=== PATIENT | female | born 1955 | race Caucasian/White ===

== ENCOUNTER 2017-10-03 08:39 | Inpatient (IN) | payer BC, OTHER ==
[2017-09-14 08:11] VITALS: BMI 24.0
--- NOTE | 2017-09-14 08:43 | PAT Medication Instructions ---
Service Date Sep 14, 2017. Current Home Medication List Hydroxyzine HCl (Hydroxyzine HCl), 0.5 TAB PO QAM PRN for Anxiety/Agitation Loratadine (Claritin), 10 MG PO QAM PRN for seasonal allergies Multivitamin (Multivitamin), 1 TAB PO QAM Trazodone Hcl (Trazodone), 50 MG PO HS Venlafaxine Hcl (Venlafaxine Hcl Er), 1 TAB PO QAM Medication Instructions For Your Scheduled Surgery - Hold the following medications the morning of surgery: Loratadine (Claritin), 10 MG PO QAM PRN for seasonal allergies Multivitamin (Multivitamin), 1 TAB PO QAM - Take the following medications the morning of surgery with a sip of water: Hydroxyzine HCl (Hydroxyzine HCl), 0.5 TAB PO QAM PRN for Anxiety/Agitation (if needed) Venlafaxine Hcl (Venlafaxine Hcl Er), 1 TAB PO QAM - Take the following medications as scheduled the night before surgery: Hydroxyzine HCl (Hydroxyzine HCl), 0.5 TAB PO QAM PRN for Anxiety/Agitation (if needed) Loratadine (Claritin), 10 MG PO QAM PRN for seasonal allergies (if needed) Trazodone Hcl (Trazodone), 50 MG PO HS If you have any questions please call us at [phone] or [phone] or [phone]
--- NOTE | 2017-09-14 09:23 | DIAGNOSTIC IMAGING REPORT ---
CHEST 2 VIEWS ROUTINE CLINICAL HISTORY: Preoperative chest COMPARISON STUDY: May 2009 FINDINGS: The cardiac and mediastinal contours are normal. There is no evidence of focal pulmonary consolidation. There is no evidence of failure. No pleural effusions are visualized.[ The patient appears mildly hyperinflated IMPRESSION: No active disease in the chest. Electronically signed by: Aftab Rodriguez M.D. 09/14/2017 9:22 AM Dictated Date/Time: 09/14/2017 9:21 AM
[2017-09-14 11:11] LABS: BASO % 0.2 %; BASO ABS # 0.02 K/uL (0-0.2); EOS % 10.4 %; HEMATOCRIT 46.5 % (37-47); IG# 0.01 K/uL (0.00-0.02); LYMPH % 25.7 %; LYMPH ABS # 2.22 K/uL (1.2-3.4); MEAN CELL VOLUME 91.7 fL (80-100); MEAN CORPUSCULAR HEMOGLOBIN 31.6 pg (25-34); MEAN CORPUSCULAR HGB CONC 34.4 g/dl (32-36); MEAN PLATELET VOLUME 10.5 fL (7.4-10.4); MONO % 6.6 %; MONO ABS # 0.57 K/uL (0.11-0.59); NEUT ABS # 4.93 K/uL (1.4-6.5); PLATELET COUNT 292 K/uL (130-400); RED CELL DISTRIBUTION WIDTH CV 12.8 % (11.5-14.5); RED CELL DISTRIBUTION WIDTH SD 42.8 fL (36.4-46.3); WHITE BLOOD COUNT 8.65 K/uL (4.8-10.8)
[2017-09-14 11:15] LABS: INR 1.1 (0.9-1.1); PTT PATIENT 25.7 SECONDS (21.0-31.0)
[2017-09-14 11:22] LABS: CALCIUM 8.8 mg/dl (8.5-10.1); CREATININE 0.58 mg/dl (0.60-1.20); POTASSIUM 3.7 mmol/L (3.5-5.1)
--- NOTE | 2017-09-29 19:30 | HISTORY & PHYSICAL EXAMINATION ---
DATE OF ADMISSION: 10/03/2017 CHIEF COMPLAINT: Bilateral knee pain and discomfort, left side greater than right. 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 She has got a long history of bilateral knee pain and discomfort that has gradually gotten worse over the past 15 years. 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 She continues to exercise regularly but becoming more limited by her knee pain. She has been through extensive conservative treatment by my partner Dr. Chong including various injections which have become less successful over time. Pain is mostly in the medial side of the knee. The left side a bit worse than the right. She has a limited walking tolerance. She would like to have her knees fixed. PAST MEDICAL HISTORY: Arthritis. PAST SURGICAL HISTORY: 1. Eye surgery. 2. Hysterectomy. ALLERGIES: Seasonal. CURRENT MEDICINES: Include: 1. Hydroxyzine. 2. Effexor. 3. Trazodone. 4. Vitamins. SOCIAL HISTORY: A 62-year-old female. She is . She smoked intermittently in the 90s, but no longer. She does have a significant alcohol intake 20 years ago. REVIEW OF SYSTEMS: Negative for diabetes, neurologic problem, vascular problem and bleeding disorders. Denies any chest pain or shortness of breath. No history of DVT or PE. PHYSICAL EXAMINATION: GENERAL: Reveals a healthy, pleasant middle-aged female. Looks to be in good health. HEENT: Benign. NECK: Supple. No lymphadenopathy. LUNGS: Clear to auscultation. HEART: Has a regular rate and rhythm. ABDOMEN: Soft, nontender, nondistended. EXTREMITIES: Grossly neurovascularly intact except as follows. Examination of left knee reveals patient walks with a varus alignment to her knee. She has got bony hypertrophy medially. Tender over the medial joint line. Small knee effusion. Range of motion is 0-125. No instability. No pain with hip motion. X-RAYS: X-rays of the left knee reviewed. Shows advanced left knee DJD. She has complete loss of medial joint space. She has osteophytes of the medial femoral condyle and medial tibial plateau. ASSESSMENT: [id number] very active female with advanced bilateral knee degenerative joint disease. This has gotten progressively worse over the past 15 years and unresponsive to conservative treatment. She elected to proceed with knee replacement; however, left one done first and the right one maybe 3-4 months later. PLAN: We will take her to the operating room and do a left total knee replacement. The risks and benefits of this procedure were explained to the patient include but not limited to DVT, PE, , infection, neurological injury, vascular injury, bleeding problem, pain, limited range of motion, stiffness, failure to relieve symptoms, incomplete relief of symptoms, need for further surgery in the future, fracture, leg length inequality, nerve palsy etc. The patient understands and desires to proceed. Informed consent was obtained. Patient does not want to stay in the hospital long. She may be able to be discharged postop day #1 if she is doing okay. She wants to limit narcotic intake and would use Tylenol, Toradol and tramadol. She is planning to be discharged to home and do outpatient therapy at [facility]. FRANCIS
[2017-10-03] VITALS (12 sets, daily range): BP systolic 125–184; BP diastolic 73–95; PULSE 55–91; TEMP 36.4–36.8; O2SAT 97–100; Ht 157.5 cm; Wt 60.6 kg
[~2017-10-03] VITALS: Ht 157.5 cm; Wt 60.6 kg
[~2017-10-03 08:39] MED LIST: ACETAMINOPHEN 500 MG TAB PO SCH; ATR10 PO; BUPIVACAINE 0.25% 30 ML VIAL ONE; BUPIVACAINE 0.5 % 5 MG/1 ML PF 10ML VIAL ONE; BUPIVACAINE LIPOSOME 266 MG, BUPIVACAINE/EPINEPHRINE INJ 50 ML, SODIUM CHLORIDE 0.9% PF... INFIL SCH; CEFAZOLIN 2000MG IV PUSH 15 ML IV SCH; CLR10 PO; FAMOTIDINE 20 MG TAB PO SCH; FENTANYL CITRATE INJ 50 MCG/1 ML 2 ML VIAL ONE; GABAPENTIN 600 MG PO SCH; LACTATED RINGER'S 1000ML 1,000 ML IV SCH; LACTATED RINGER'S 1000ML 500 ML IV SCH; LACTATED RINGER'S 1000ML IV SCH; LIDOCAINE HCL 2% 2 ML VIAL (20MG/ML) ONE; METOCLOPRAMIDE HCL 10 MG TAB PO SCH; MIDAZOLAM HCL 1 MG/ML 2ML VIAL ONE; MULT-506 PO; ONDANSETRON INJ 2 MG/ML 2 ML VIAL ONE; PROPOFOL IV EMULSION 10 MG/ML 20 ML VIAL IV ONE; SCOPOLAMINE 1.5 MG TDSY TD SCH; TRANEXAMIC ACID INJ 1,000 MG x 1 Bag Intra-Op IV SCH; TRAZ50TA35 PO; VENL150T33 PO
--- NOTE | 2017-10-03 08:55 | History & Physical Bridge Note ---
H&P Re-Evaluation Bridge Note: I have examined the patient, reviewed the History & Physical and in the interval since the performance of the History & Physical I have noted the following changes of clinical significance: No changes noted
[2017-10-03] MEDS ORDERED: BACITRACIN 50000 UNIT VIAL ONE (10:35)
[2017-10-03] MEDS ORDERED: SODIUM CHLORIDE 0.9% PF 50 ML VIAL ONE (10:35)
[2017-10-03] MEDS ORDERED: BUPIVACAINE LIPOSOME 1/3% 266 MG/20 ML VIAL INFIL ONE (10:35)
[2017-10-03] MEDS ORDERED: BUPIVACAINE 0.25% 30 ML VIAL ONE ×2 (10:36→10:43)
[2017-10-03] MEDS ORDERED: EpINEphrine INJ 1MG/ML AMP 1 MG/ML AMP ONE (10:36)
[2017-10-03] MEDS ORDERED: MIDAZOLAM HCL 1 MG/ML 2ML VIAL ONE (10:55)
[2017-10-03] MEDS ORDERED: ONDANSETRON INJ 2 MG/ML 2 ML VIAL IV PRN ×2 (11:00→12:30)
[2017-10-03] MEDS ORDERED: KETOROLAC TROMETHAMINE 30 MG/ML VIAL IV. PRN (11:00)
[2017-10-03] MEDS ORDERED: PHENYLEPHRINE 100MCG/ML 5ML SYR IV PRN (11:00)
[2017-10-03] MEDS ORDERED: ATROPINE SULFATE 0.1 MG/ML 5ML SYR IV PRN (11:00)
[2017-10-03] MEDS ORDERED: HYDROmorphone INJ 2 MG/ML SYR/VIAL IV PRN (11:00)
[2017-10-03] MEDS ORDERED: EpHEDrine SULFATE INJ 50 MG/ML AMP IV PRN (11:00)
[2017-10-03] MEDS ORDERED: PHENYLEPHRINE HCL INJ 10 MG/ML VIAL ONE (12:03)
--- NOTE | 2017-10-03 12:26 | [facility] Post Operative Brief Note ---
Immediate Operative Summary Operative Date Oct 03, 2017. Pre-Operative Diagnosis Left Knee Advanced Degenerative Joint Disease Post-Operative Diagnosis Left Knee Advanced Degenerative Joint Disease Procedure(s) Performed Left Total Knee Arthroplasty Surgeon Dr. Oleary Cardroom Hand Surgeon(s) CHANG Cervantes Estimated Blood Loss 50 ml Findings Consistent with Post-Op Diagnosis Fluids (cc crystalloids) 1000 cc Specimens A. Left Knee Bone and Tissue Drains None Anesthesia Type MAC Spinal Regional Complication(s) none Disposition Accompanied Pt To Recover: no Disposition: Recovery Room / PACU
[2017-10-03] MEDS ORDERED: ALUMINUM/MAGNESIUM/SIMETH (MAALOX MAX) 30 ML UDC PO PRN (12:30)
[2017-10-03] MEDS ORDERED: METOCLOPRAMIDE HCL INJ 5 MG/ML 2 ML VIAL IV PRN (12:30)
[2017-10-03] MEDS ORDERED: DiphenhydrAMINE HCL 50 MG/ML VIAL IV PRN (12:30)
[2017-10-03] MEDS ORDERED: LORATADINE 10 MG TAB PO PRN (12:30)
[2017-10-03] MEDS ORDERED: MAGNESIUM HYDROXIDE SUSP 30 ML UDC PO PRN (12:30)
[2017-10-03] MEDS ORDERED: SILVER SULFADIAZINE 1% CR 50 GM JAR EXT PRN (12:30)
[2017-10-03] MEDS ORDERED: hydrOXYzine HCL 10 MG TAB PO PRN (12:30)
[2017-10-03] MEDS ORDERED: ZOLPIDEM TARTRATE 5 MG TAB PO PRN (12:30)
[2017-10-03] MEDS ORDERED: BISACODYL 10 MG SUPP PR PRN (12:30)
[2017-10-03] MEDS ORDERED: CEFAZOLIN IV 1,000 MG in DEXTROSE 5% 50ML 50 ML IV SCH (12:30)
[2017-10-03] MEDS ORDERED: OXYCODONE HCL IR 5 MG TAB (IMMEDIATE RELEASE) PO PRN (12:30)
[2017-10-03] MEDS ORDERED: MoRPHine SULFATE 2 MG/ML CARP IV PRN (12:30)
--- NOTE | 2017-10-03 12:53 | DIAGNOSTIC IMAGING REPORT ---
LEFT KNEE 2 VIEWS History: Left total knee arthroplasty. Degenerative arthritis. Postop. FINDINGS: The patient is status post a left total knee arthroplasty. The hardware is intact. No fracture or dislocation. Skin jose alberto are in place. IMPRESSION: Left total knee arthroplasty. No evidence for hardware complication. Electronically signed by: Silvestre Aguayo M.D. 10/03/2017 12:52 PM Dictated Date/Time: 10/03/2017 12:51 PM
--- NOTE | 2017-10-03 13:02 | Anesthesiology Progress Note ---
Anesthesia Post Op Note Date & Time Oct 03, 2017 at 13:02 Vital Signs Pain Intensity: 0 Vital Signs Past 12 Hours Date Time Temp Pulse Resp B/P (MAP) Pulse Ox O2 Delivery O2 Flow Rate FiO2 10/03/17 13:00 36.9 59 12 145/72 99 Nasal Cannula 2 10/03/17 12:50 61 13 140/77 100 Nasal Cannula 2 10/03/17 12:40 59 15 137/73 100 Oxymask 10 10/03/17 12:30 36.8 67 14 136/81 100 Oxymask 10 10/03/17 09:32 36.6 91 20 157/95 99 Room Air Notes Mental Status: alert / awake / arousable, participated in evaluation Pt Amnestic to Procedure: Yes Nausea / Vomiting: adequately controlled Pain: adequately controlled Airway Patency, RR, SpO2: stable & adequate BP & HR: stable & adequate Hydration State: stable & adequate Anesthetic Complications: no major complications apparent
--- NOTE | 2017-10-03 13:46 | OPERATIVE REPORT ---
DATE OF OPERATION: 10/03/2017 SURGEON: Srinivasan Oleary MD DIRECTOR OF CLAIMS: CHANG Shields PREOPERATIVE DIAGNOSIS: Left knee degenerative joint disease. POSTOPERATIVE DIAGNOSIS: Same. PROCEDURE PERFORMED: Left cemented posterior stabilized total knee arthroplasty. COMPLICATIONS: None. ESTIMATED BLOOD LOSS: 50 mL. FLUID REPLACEMENT: 1000 mL crystalloid fluid replacement. TOURNIQUET TIME: 55 minutes at 300 mmHg. ANESTHESIA: Spinal with adductor canal block. DRAINS: None. SPECIMENS: Left knee sent for pathology. OPERATIVE INDICATIONS: The patient is a 62-year-old very active female who has had about a 10-15 year history of bilateral increasing pain in her knees, so she was progressive knee arthritis. She has been through extensive conservative treatment over the years, but become less successful. She has become more debilitated by her disease and she elected to total knee arthroplasty. OPERATIVE FINDINGS: The operative findings were advanced left knee DJD. She had extensive grade 4 change of the medial femoral condyle and medial tibial plateau with eburnation. She had grade 3 and some spotty grade 4 changes of patellofemoral joint. The lateral compartment was pretty well preserved. She had a varus deformity to her knee. She had posterior osteophytes. OPERATIVE IMPLANTS: Operative implants consisted of: 1. Biomet Vanguard size 62.5 left posterior bifemoral component. 2. Biomet size 67 tibial tray. 3. 12 mm posterior stabilized polyethylene insert. 4. 28 x 8 all-poly patella. OPERATIVE PROCEDURE: The patient was taken to the operating room, identified and placed on the operating table in supine position. All contact areas were appropriately padded. IV antibiotics provided by anesthesia team. Spinal anesthetic and adductor canal block had been provided in the holding area. Webster catheter was placed in sterile fashion. Left thigh tourniquet was then placed and left lower extremity was then prepped and draped in usual sterile fashion. The left leg was elevated and exsanguinated with Esmarch and tourniquet was placed at 300 mmHg. An anterior approach of the left knee was then performed through a longitudinal incision centered over the patella. Sharp dissection was carried out through the subcutaneous tissue down to the level of the extensor mechanism. A medial parapatellar arthrotomy incision was made. Some subperiosteal dissection was carried out medially. The fat pad was resected from beneath the patellar tendon. Lateral patellofemoral ligament was released. Patella was everted and knee was flexed. The osteophytes were taken off the distal femur. The ACL and PCL were then released from the distal femur and the tibia subluxated anteriorly. The external tibial alignment jig was then placed in the anterior face of the tibia and adjusted 14 mm medially. Proximal tibial cut was made to remove about a millimeter of bone from the most deficient aspect of the medial tibial plateau. Some osteophytes were taken off medial and posteromedially. The tibia sized to a size 67. Attention was then drawn to the femur. The distal femur was entered with a sharp drill bit. Intramedullary canal was suctioned. A left 5 degree valgus cutting guide was placed. Distal femoral cutting block was pinned in place. Distal femoral cut was made to take an additional 3 mm of bone off the distal femur. The femur was then sized to a size 62.5. We downsized this slightly. The AP cutting block was pinned parallel to the epicondylar axis, which was 5 degrees of external rotation. The anterior cut, anterior chamfer, posterior cut, posterior chamfer cuts were made. Box cutting guide was placed and adjusted slightly lateral and the box cut was made. The knee was flexed. The remnants of the medial and lateral menisci were excised. The osteophytes were taken off the posterior aspect of the femur. Trial femoral component was placed. Tibial tray was pinned in maximum external rotation, and drill and stem punch were used to create defect in proximal tibia for the tibial tray. The knee was then trialed and the 12 mm insert fit most appropriately. Attention was then drawn to the patella. The patella was cleaned of all soft tissues. Patella thickness measured 21 mm in thickness cut down to 13. It was sized to a size 28 patella. Lug holes were drilled for the 28 patella. Lateral osteophyte was removed. Patella button was placed. Knee was taken through range of motion and patella tracked nicely with no thumbs test. Attention was then drawn toward placing the permanent components. All trial components were removed. A bone plug was placed in the distal femur to limit blood loss. A double batch of Palacos G cement was mixed. A left 62.5 posterior stabilized femoral component, size 67 tibial tray, a 12 mm posterior stabilized polyethylene insert, and a 28 x 8 all-poly patella then cemented in place. Knee was brought out into full extension until cement hardened. A final cement check was then performed. Pericapsular tissues were injected with a total of 100 mL of combination of 20 mL of Exparel, 30 mL of normal saline, 50 mL of 0.25% Marcaine with epinephrine. The patient did receive 1 gram of tranexamic acid. The tourniquet was then let down for final tourniquet time of 55 minutes. Hemostasis was assured using electrocautery. The extensor mechanism was then closed with a combination of #1 PDS suture and #1 Vicryl suture in [id number] fashion. Extensor mechanism was checked and found to be intact. The subcutaneous tissues were then closed with #2 Dexon suture in a buried interrupted fashion. Skin was closed with skin jose alberto. Leg was then cleaned, dried and a sterile dressing of Xeroform, 4 x 4, sterile cast padding and Nahum bandage were applied. The patient then transferred to the recovery room in stable condition. The patient tolerated the procedure well with no complication. All needle and sponge counts were correct at the end of the operation. I attest to the content of the Intraoperative Record and any orders documented therein. Any exception s are noted below.
[2017-10-03] MEDS: D5W AND 1/2NSS + 20MEQ KCL 1,000 ML IV SCH (14:29)
[2017-10-03] MEDS: ACETAMINOPHEN 500 MG TAB PO SCH ×2 (14:29→21:41)
--- NOTE | 2017-10-03 15:13 | PROGRESS NOTE ---
DATE: 10/03/2017 SUBJECTIVE: This is a 62-year-old female, postop from a left knee replacement. She is doing well. Not had any pain yet. No chest pain or shortness of breath. Not feeling dizzy or lightheaded. OBJECTIVE: VITAL SIGNS: Temperature 36.5. Vital signs stable. PHYSICAL EXAMINATION: GENERAL: Physical examination reveals a pleasant, middle-aged female. She is sitting on bed, looks quite comfortable. LUNGS: Clear to auscultation. HEART: Heart has a regular rate and rhythm. ABDOMEN: Soft, nontender, nondistended. EXTREMITY EXAMINATION: Grossly neurovascularly intact except as follows: Examination of the left lower extremity reveals the leg to be well-aligned. Dressing is clean, dry, and intact. She can dorsiflex and plantarflex her foot appropriately. She is neurologically intact. X-RAYS: X-rays of the left knee from recovery room reviewed. Shows a cemented posterior stabilized total knee arthroplasty. Components looked to be in good position. No signs of problems. ASSESSMENT: This is a 62-year-old female, postop from a left knee replacement, doing well. Pain is controlled. She is neurologically intact. PLAN: 1. DVT prophylaxis including thigh-high TEDs, SCDs, and aspirin twice a day. 2. PT/OT. Weightbear as tolerated. Left total knee protocol. 3. Pain control, doing pretty well with current pain regimen. 4. IV antibiotics x24 hours. 5. Disposition: Plan to discharge to home. She is going do outpatient therapy once adequately recovered.
[2017-10-03] MEDS: KETOROLAC TROMETHAMINE 30 MG/ML VIAL IV. SCH ×2 (15:58→21:41)
[2017-10-03] MEDS: CHECK SCOPOLAMINE PATCH PLACEMENT SCH (16:02)
[2017-10-03] MEDS: FERROUS GLUCONATE 324 MG TAB PO SCH (17:42)
[2017-10-03] MEDS: CEFAZOLIN IV 1,000 MG in SYRINGE 0 ML IV SCH (18:07)
[2017-10-03] MEDS ORDERED: TRANEXAMIC ACID INJ 1,000 MG in SODIUM CHLORIDE 0.9% 100ML 100 ML IV SCH (19:00)
[2017-10-03] MEDS: DOCUSATE SODIUM 100 MG CAP PO SCH (20:33)
[2017-10-03] MEDS: ASPIRIN 81 MG ECTAB PO SCH (20:33)
[2017-10-03] MEDS ORDERED: TAPENTADOL ER 50 MG TABCR PO SCH (21:00)
[2017-10-03] MEDS ORDERED: TRAZODONE HCL 50 MG TAB PO SCH (21:00)
[2017-10-03] MEDS ORDERED: SENNA 8.6 MG TAB PO SCH (21:00)
[2017-10-03] MEDS ORDERED: TRAMADOL HCL 50 MG TAB PO PRN (22:00)
[2017-10-04] MEDS: D5W AND 1/2NSS + 20MEQ KCL 1,000 ML IV SCH ×2 (00:26→10:15)
[2017-10-04] MEDS: CHECK SCOPOLAMINE PATCH PLACEMENT SCH ×2 (00:26→07:34)
[2017-10-04 00:30] VITALS: O2SAT 99
[2017-10-04] MEDS: CEFAZOLIN IV 1,000 MG in SYRINGE 0 ML IV SCH (02:14)
[2017-10-04] MEDS: KETOROLAC TROMETHAMINE 30 MG/ML VIAL IV. SCH ×2 (04:22→10:15)
[2017-10-04 04:30] VITALS: BP 135/80; PULSE 65; TEMP 36.5; O2SAT 98
[2017-10-04] MEDS: ACETAMINOPHEN 500 MG TAB PO SCH ×2 (06:06→13:35)
[2017-10-04 06:13] LABS: HEMATOCRIT 37.5 % (37-47); HEMOGLOBIN 12.8 g/dL (12.0-16.0); MEAN CELL VOLUME 93.8 fL (80-100); MEAN CORPUSCULAR HGB CONC 34.1 g/dl (32-36); MEAN PLATELET VOLUME 9.7 fL (7.4-10.4); PLATELET COUNT 231 K/uL (130-400); RED CELL DISTRIBUTION WIDTH CV 12.8 % (11.5-14.5); RED CELL DISTRIBUTION WIDTH SD 43.8 fL (36.4-46.3)
[2017-10-04 06:45] LABS: CALCIUM 7.9 mg/dl (8.5-10.1); CREATININE 0.65 mg/dl (0.60-1.20); POTASSIUM 4.3 mmol/L (3.5-5.1)
[2017-10-04 07:37] VITALS: BP 149/80; PULSE 63; TEMP 36.7; O2SAT 98
[2017-10-04] MEDS: FERROUS GLUCONATE 324 MG TAB PO SCH ×2 (08:30→11:22)
[2017-10-04] MEDS ORDERED: PANTOprazole SOD 40 MG TAB PO SCH (09:00)
[2017-10-04] MEDS ORDERED: MULTIVITAMIN TAB PO SCH ×2 (09:00)
[2017-10-04] MEDS ORDERED: VENLAFAXINE HCL XR 150 MG CAPXR PO SCH (09:00)
[2017-10-04] MEDS: ASPIRIN 81 MG ECTAB PO SCH (09:35)
[2017-10-04] MEDS: DOCUSATE SODIUM 100 MG CAP PO SCH (09:36)
[2017-10-04] MEDS ORDERED: ULT50X PO (10:36)
[2017-10-04] MEDS ORDERED: ACET-24 PO (10:36)
[2017-10-04] MEDS ORDERED: KETO10TA PO (10:36)
[2017-10-04] MEDS ORDERED: ASPI-320 PO (10:36)
--- NOTE | 2017-10-04 10:38 | Discharge Instructions ---
Discharge Instructions Date of Service Oct 04, 2017. Admission Reason for Admission: Left Knee Degenerative Joint Disease, Knee Pain Discharge Discharge Diagnosis / Problem: Left Knee REplacement Discharge Goals Goal(s): Decrease discomfort, Improve function, Increase independence, Improve disease control Activity Recommendations Activity Limitations: per Instructions/Follow-up section Weightbearing Status: Left weightbearing . Instructions / Follow-Up Instructions / Follow-Up ACTIVITY RECOMMENDATIONS: Physical Therapy: * You will go to physical therapy three times each week for four to six weeks after your surgery in order to regain your knee range of motion and to retrain your knee to work properly. * It is just as important to make sure you are getting your knee perfectly straight as it is to regain your knee bend. * Taking a pain pill an hour before therapy can help you have a more productive and comfortable therapy session. Home Exercise: * You were shown a series of exercises (heel props, heel slides, etc.) in the hospital. Do these exercises three to four times each day including the exercises you were shown in physical therapy. Walking: * Get up and walk several times each day. For the first four weeks, try not to stand or walk for more than one hour at a time. If you do stand or walk for more than one hour, you will not hurt anything, but your knee and leg will likely swell. * As you feel comfortable, you may change from the walker or crutches to a cane and then to independent walking. MEDICATIONS: New Medicine: * You will likely be taking one or more of these medications: 1. Tramadol - A quick and shorter-acting pain medication. Take one to two tablets every four to six hours to lessen your pain. 2. Aspirin - Thins your blood to lessen the chance of forming a blood clot. * The most common side effects of pain medicine and iron are nausea and constipation. If nausea or constipation is too much of a problem or if you have any questions about your new medicines or doses, call [facility] at [phone]. We will try to help you manage these issues. VERY IMPORTANT TO READ AND REVIEW" Pain: * The immediate post-operative period after knee replacement surgery is often quite painful. * You are given a prescription for pain medicine. You should take it, as directed, when you need it, especially before physical therapy and before going to bed. Pain that interferes with sleep is very common and can last several months. * You will likely need pain medicine for the first four to six weeks. It will not stop all of the pain. The pain will lessen and as you feel better, you may change to milder pain medicine such as Tylenol. * The most common side effects of pain medicine are nausea and constipation, so don't take more than you need. SPECIAL CARE INSTRUCTIONS: TEDs/Elastic Stockings: * The white elastic stockings help limit swelling and prevent blood clots from forming in your legs. The more you wear them, the more they work. * Wear them for six weeks after knee replacement surgery and four weeks after partial knee replacement. Prevention of Infection: * Take antibiotics one hour before any dental cleaning, dental work, urological procedure, gastrointestinal procedure or any invasive surgery in order to prevent your new joint from getting infected. * You may get the antibiotics from the doctor performing the procedure or you may call our office at before and we will call in a prescription to the pharmacy of your choice. Things to Watch For: * Drainage from the incision site that occurs more than one week after your surgery. * Severely increased knee/leg pain or swelling. * Increased redness at the incision site. * Fever above 102 degrees Fahrenheit. * Unusual chest pain or shortness of breath. * Unusual pain or burning with urination. Call [facility] at with any of the above problems or if you have any questions about your medicines or recovery. FOLLOW UP VISIT: Make an appointment to see your doctor for approximately two weeks after surgery for a progress check and staple removal by calling the office at . Current Hospital Diet Patient's current hospital diet: Regular Diet Discharge Diet Recommended Diet: Regular Diet Procedures Procedures Performed: Left Total Knee Arthroplasty Pending Studies Studies pending at discharge: no Medical Emergencies . Who to Call and When: Medical Emergencies: If at any time you feel your situation is an emergency, please call [phone] immediately. . Non-Emergent Contact Non-Emergency issues call your: Surgeon . "Provider Documentation" section prepared by Srinivasan Oleary. .
[2017-10-04 11:24] VITALS: BP 164/78; PULSE 67; TEMP 36.4; O2SAT 96
[2017-10-04 14:20] VITALS: BP 164/78; PULSE 67; TEMP 36.4; O2SAT 96
--- NOTE | 2017-10-04 19:53 | PROGRESS NOTE ---
DATE: 10/04/2017 SUBJECTIVE: A 62-year-old female postop day 1 from a left knee replacement. She is doing well. Pain has been controlled. No chest pain or shortness of breath. Not feeling dizzy or lightheaded. Therapy went well. She is anxious to go home. OBJECTIVE: VITAL SIGNS: Temperature 36.4. Vital signs stable. GENERAL: This is a pleasant, middle-aged female. She walked around the room quite well when I visited her this afternoon. EXTREMITIES: Examination of left leg reveals the dressing to be clean, dry and intact. She can dorsiflex and plantarflex her foot appropriately. NEUROLOGICAL: She is neurologically intact. LABORATORY DATA: Hemoglobin is 12.8. Hematocrit 37.5. Electrolytes are stable. ASSESSMENT: A 62-year-old female postoperative day 1 from a left knee replacement, doing well. Pain has been remarkably well controlled. She has done well. PLAN: 1. DVT prophylaxis including thigh-high TEDs, SCDs, and aspirin twice a day. 2. PT/OT. Weight bear as tolerated. Left total knee protocol. 3. Pain control, doing pretty well with current pain regimen. 4. Disposition: She is planning to be discharged to home and do outpatient therapy at [facility].
== END 2017-10-04 15:42 | disposition home or self-care (01) | DRG 470 ==
LOC: C.ACU 08:39 → C.3E 09:30 → ENRESERV 12:45
PROVIDERS: ADMIT Orthopaedic Surgery Sports Medicine; ATTEND Orthopaedic Surgery Sports Medicine
PROC: 0SRD0J9 Replacement of Left Knee Joint with Synthetic Substitute, Cemented, Open Approach (ICD-10-PCS; principal; 2017-10-03 11:00)
DX: M17.12 Unilateral primary osteoarthritis, left knee (principal); J30.2 Other seasonal allergic rhinitis; F41.9 Anxiety disorder, unspecified; Z87.891 Personal history of nicotine dependence; Z90.710 Acquired absence of both cervix and uterus

== ENCOUNTER 2018-01-16 08:25 | Inpatient (IN) | payer OTHER ==
[2017-12-13 08:10] VITALS: BMI 23.0
--- NOTE | 2017-12-18 10:33 | PAT Medication Instructions ---
Service Date Dec 18, 2017. Current Home Medication List Hydroxyzine HCl (Hydroxyzine HCl), 0.5 TAB PO QAM PRN for Anxiety/Agitation Ibuprofen Tab (Advil), 200 MG PO PRN Loratadine (Claritin), 10 MG PO QAM PRN for seasonal allergies Multivitamin (Multivitamin), 1 TAB PO QAM Trazodone Hcl (Trazodone), 50 MG PO HS Venlafaxine Hcl (Venlafaxine Hcl Er), 1 TAB PO QAM Medication Instructions For Your Scheduled Surgery - Check with surgeon for instructions: Ibuprofen Tab (Advil), 200 MG PO PRN - Hold the following medications the morning of surgery: Loratadine (Claritin), 10 MG PO QAM PRN for seasonal allergies Multivitamin (Multivitamin), 1 TAB PO QAM\ - Take the following medications the morning of surgery with a sip of water: Hydroxyzine HCl (Hydroxyzine HCl), 0.5 TAB PO QAM PRN for Anxiety/Agitation Venlafaxine Hcl (Venlafaxine Hcl Er), 1 TAB PO QAM - Take the following medications as scheduled the night before surgery: Loratadine (Claritin), 10 MG PO QAM PRN for seasonal allergies Trazodone Hcl (Trazodone), 50 MG PO HS Hydroxyzine HCl (Hydroxyzine HCl), 0.5 TAB PO QAM PRN for Anxiety/Agitation (if needed) If you have any questions please call us at [phone] or [phone] or [phone]
[2017-12-18 11:26] LABS: BASO % 0.6 %; BASO ABS # 0.04 K/uL (0-0.2); EOS ABS # 0.33 K/uL (0-0.5); HEMATOCRIT 41.7 % (37-47); HEMOGLOBIN 14.4 g/dL (12.0-16.0); IG# 0.01 K/uL (0.00-0.02); LYMPH % 39.2 %; LYMPH ABS # 2.59 K/uL (1.2-3.4); MEAN CELL VOLUME 92.1 fL (80-100); MEAN CORPUSCULAR HEMOGLOBIN 31.8 pg (25-34); MEAN CORPUSCULAR HGB CONC 34.5 g/dl (32-36); MEAN PLATELET VOLUME 10.5 fL (7.4-10.4); MONO % 6.2 %; MONO ABS # 0.41 K/uL (0.11-0.59); NEUT % 48.8 %; NEUT ABS # 3.23 K/uL (1.4-6.5); PLATELET COUNT 294 K/uL (130-400); RED CELL DISTRIBUTION WIDTH CV 12.3 % (11.5-14.5); RED CELL DISTRIBUTION WIDTH SD 41.3 fL (36.4-46.3); WHITE BLOOD COUNT 6.61 K/uL (4.8-10.8)
[2017-12-18 11:32] LABS: BLOOD UREA NITROGEN 7 mg/dl (7-18); CALCIUM 8.6 mg/dl (8.5-10.1); CARBON DIOXIDE 27 mmol/L (21-32); CREATININE 0.52 mg/dl (0.60-1.20); GLUCOSE 90 mg/dl (70-99); SODIUM 139 mmol/L (136-145)
[2017-12-18 11:36] LABS: PTT PATIENT 25.6 SECONDS (21.0-31.0)
--- NOTE | 2018-01-12 19:15 | HISTORY & PHYSICAL EXAMINATION ---
DATE OF ADMISSION: 01/16/2018 CHIEF COMPLAINT: Persistent right knee pain and discomfort. HISTORY OF PRESENT ILLNESS: A 62-year-old female who is status post a left knee replacement. 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 She had a long history of bilateral knee pain and discomfort that has gradually gotten worse over the past 15 years. It has gotten to the point where she is having difficulty even exercising to any significant degree due to her knee pain. Her left knee replacement has done well and she is very happy with it. She would like to proceed with right knee replacement. She has got pain globally in her right knee. The more she walks, the more it hurts. She has a limited walking tolerance. PAST MEDICAL HISTORY: Arthritis. PAST SURGICAL HISTORY: Include: 1. Eye surgery. 2. Hysterectomy. 3. Left total knee replacement done 10/03/2017. ALLERGIES: None. CURRENT MEDICATIONS: Include: 1. Hydroxyzine. 2. Effexor. 3. Trazodone. 4. Vitamins. 5. Unspecified medicine. SOCIAL HISTORY: A 62-year-old female. The patient is quite active. She is . Does have a history of significant alcohol history in the past, but has overcome that. FAMILY HISTORY: Noncontributory. REVIEW OF SYSTEMS: Negative for diabetes, neurologic problems, vascular problems, and bleeding disorders. Denies any chest pain. No shortness of breath. No history of DVT or PE. PHYSICAL EXAMINATION: GENERAL: This is a healthy, pleasant, thin female. Looks to be in excellent health. HEENT: Benign. NECK: Supple. No lymphadenopathy. LUNGS: Clear to auscultation. HEART: Regular rate and rhythm. ABDOMEN: Soft, nontender, nondistended. EXTREMITIES: Grossly neurovascularly intact except as follows: Examination of both knees reveal patient ambulates with a minimal limp. Examination of the right knee reveals slight varus alignment. She has bony hypertrophy medially. Range of motion is about 5 degrees short of full extension to 125 degrees of flexion. She has no clinical instability. No pain with hip motion. She is neurologically intact. Examination of left knee reveals a well-healed incision. Range of motion 0-125. Good straight leg raise. No instability. X-RAYS: X-rays of the right knee reveal advanced medial compartment DJD. She has complete loss of her medial joint space. She has osteophytes of the medial femoral condyle and medial tibial plateau. She has patellofemoral disease as well. 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 She is very happy with her left knee and would like to have her right knee replaced. She has failed conservative care. PLAN: We will take her to the operating room and do a right total knee replacement. The risks and benefits of this procedure were explained to the patient including but not limited to DVT, PE, , infection, neurological injury, vascular injury, bleeding problem, pain, limited range of motion, stiffness, failure to relieve her symptoms, incomplete relief of symptoms, need for further surgery in the future, fracture, leg length inequality, nerve palsy, etc. The patient understands and desires to proceed. Informed consent was obtained. As far as postoperative pain control, will use Tylenol [id number] and Toradol for five days followed by ibuprofen. Will use limited tramadol. She really does not want to use much pain medicines as she is concerned about addiction. FRANCIS
[2018-01-16] VITALS (9 sets, daily range): BP systolic 121–180; BP diastolic 63–88; PULSE 50–87; TEMP 36.2–36.8; O2SAT 97–100; Ht 157.5 cm; Wt 58.6 kg
[~2018-01-16] VITALS: Ht 157.5 cm; Wt 58.6 kg
[~2018-01-16 08:25] MED LIST changes: -BUPIVACAINE 0.25% 30 ML VIAL ONE; +EpINEphrine INJ 1MG/ML AMP 1 MG/ML AMP ONE; -FENTANYL CITRATE INJ 50 MCG/1 ML 2 ML VIAL ONE; +IBUP-103 PO; -LACTATED RINGER'S 1000ML IV SCH; -LIDOCAINE HCL 2% 2 ML VIAL (20MG/ML) ONE; -MIDAZOLAM HCL 1 MG/ML 2ML VIAL ONE; -ONDANSETRON INJ 2 MG/ML 2 ML VIAL ONE; -PROPOFOL IV EMULSION 10 MG/ML 20 ML VIAL IV ONE; +ROPIVACAINE 0.5% 5 MG/ML 30 ML VIAL ONE
[2018-01-16] MEDS ORDERED: FENTANYL CITRATE INJ 50 MCG/1 ML 2 ML VIAL IV PRN (10:00)
[2018-01-16] MEDS ORDERED: ONDANSETRON INJ 2 MG/ML 2 ML VIAL IV PRN ×2 (10:00→13:30)
[2018-01-16] MEDS ORDERED: HYDROmorphone INJ 1 MG/ML SYR IV PRN (10:00)
[2018-01-16] MEDS ORDERED: ATROPINE SULFATE 0.1 MG/ML 5ML SYR IV PRN (10:00)
[2018-01-16] MEDS ORDERED: EpHEDrine SULFATE INJ 50 MG/ML AMP IV PRN (10:00)
[2018-01-16] MEDS ORDERED: PROPOFOL IV EMULSION 10 MG/ML 20 ML VIAL ONE ×3 (10:20→13:21)
[2018-01-16] MEDS ORDERED: ONDANSETRON INJ 2 MG/ML 2 ML VIAL ONE (10:20)
[2018-01-16] MEDS ORDERED: DEXAMETHASONE SOD INJ 4 MG/ML VIAL ONE (10:20)
[2018-01-16] MEDS ORDERED: LIDOCAINE HCL 2% 2 ML VIAL (20MG/ML) ONE (10:20)
[2018-01-16] MEDS ORDERED: MIDAZOLAM HCL 1 MG/ML 2ML VIAL ONE (10:21)
[2018-01-16] MEDS ORDERED: FENTANYL CITRATE INJ 50 MCG/1 ML 2 ML VIAL ONE (10:21)
[2018-01-16] MEDS ORDERED: SODIUM CHLORIDE 0.9% PF 50 ML VIAL ONE (10:47)
[2018-01-16] MEDS ORDERED: BUPIVACAINE 0.25% 30 ML VIAL ONE (10:48)
[2018-01-16] MEDS ORDERED: BUPIVACAINE LIPOSOME 1/3% 266 MG/20 ML VIAL ONE (10:48)
[2018-01-16] MEDS ORDERED: BACITRACIN 50000 UNIT VIAL ONE (10:48)
[2018-01-16] MEDS ORDERED: EpINEphrine INJ 1MG/ML AMP 1 MG/ML AMP ONE (10:48)
--- NOTE | 2018-01-16 13:23 | [facility] Post Operative Brief Note ---
Immediate Operative Summary Operative Date Jan 16, 2018. Pre-Operative Diagnosis advanced right knee degenerative joint disease Post-Operative Diagnosis same as preop Procedure(s) Performed Right Total Knee Arthroplasty Surgeon Dr. Srinivasan Oleary Extension Service Specialist In Charge Surgeon(s) Alejandro Hazel PA-C Estimated Blood Loss 50ML Findings Consistent with Post-Op Diagnosis Fluids (cc crystalloids) 1800 cc Specimens Permanent Solution: A.) Right Knee Bone and Tissue Drains None Anesthesia Type MAC Spinal Regional Complication(s) none Disposition Accompanied Pt To Recover: yes Disposition: Recovery Room / PACU Overlapping Procedure I was present for: the critical portions of procedure. I was immediately available: during the entire case
[2018-01-16] MEDS ORDERED: DiphenhydrAMINE HCL 50 MG/ML VIAL IV PRN (13:30)
[2018-01-16] MEDS ORDERED: hydrOXYzine HCL 10 MG TAB PO PRN (13:30)
[2018-01-16] MEDS ORDERED: HYDROmorphone INJ 0.5 MG/0.5 ML SYR IV PRN (13:30)
[2018-01-16] MEDS ORDERED: MAGNESIUM HYDROXIDE SUSP 30 ML UDC PO PRN (13:30)
[2018-01-16] MEDS ORDERED: ALUMINUM/MAGNESIUM/SIMETH (MAALOX MAX) 30 ML UDC PO PRN (13:30)
[2018-01-16] MEDS ORDERED: LORATADINE 10 MG TAB PO PRN (13:30)
[2018-01-16] MEDS ORDERED: BISACODYL 10 MG SUPP PR PRN (13:30)
[2018-01-16] MEDS ORDERED: METOCLOPRAMIDE HCL INJ 5 MG/ML 2 ML VIAL IV PRN (13:30)
[2018-01-16] MEDS ORDERED: SILVER SULFADIAZINE 1% CR 50 GM JAR EXT PRN (13:30)
[2018-01-16] MEDS ORDERED: ZOLPIDEM TARTRATE 5 MG TAB PO PRN (13:30)
--- NOTE | 2018-01-16 14:07 | Anesthesiology Progress Note ---
Anesthesia Post Op Note Date & Time Jan 16, 2018 at 14:07 Vital Signs Pain Intensity: 0 Vital Signs Past 12 Hours Date Time Temp Pulse Resp B/P (MAP) Pulse Ox O2 Delivery O2 Flow Rate FiO2 01/16/18 13:55 53 13 145/74 100 Nasal Cannula 4 01/16/18 13:45 50 19 168/70 100 Oxymask 10 01/16/18 13:35 59 15 143/66 100 Oxymask 10 01/16/18 13:28 36.3 62 19 145/81 100 Oxymask 10 01/16/18 08:47 36.8 87 20 145/88 100 Room Air Notes Mental Status: alert / awake / arousable, participated in evaluation Pt Amnestic to Procedure: Yes Nausea / Vomiting: adequately controlled Pain: adequately controlled Airway Patency, RR, SpO2: stable & adequate BP & HR: stable & adequate Hydration State: stable & adequate Neuraxial Anesthesia: was administered, sensory block is resolving Anesthetic Complications: no major complications apparent
--- NOTE | 2018-01-16 14:07 | DIAGNOSTIC IMAGING REPORT ---
RIGHT KNEE 2 VIEWS History: Right total knee arthroplasty. Degenerative arthritis. Postop. FINDINGS: The patient is status post a right total knee arthroplasty. The hardware is intact. No fracture or dislocation. Skin jose alberto and surgical drains are in place. IMPRESSION: Right total knee arthroplasty. No evidence for hardware complication. Electronically signed by: Silvestre Aguayo M.D. 01/16/2018 2:05 PM Dictated Date/Time: 01/16/2018 2:05 PM
[2018-01-16] MEDS: CHECK SCOPOLAMINE PATCH PLACEMENT SCH ×4 (15:39→23:40)
[2018-01-16] MEDS: D5W AND 1/2NSS + 20MEQ KCL 1,000 ML IV SCH (15:39)
[2018-01-16] MEDS ORDERED: ASPI-461 PO (16:01)
[2018-01-16] MEDS ORDERED: ACET-24 PO (16:01)
[2018-01-16] MEDS ORDERED: KETO10TA PO (16:01)
[2018-01-16] MEDS ORDERED: ULT50X PO (16:01)
[2018-01-16] MEDS: FERROUS GLUCONATE 324 MG TAB PO SCH (17:40)
[2018-01-16] MEDS: KETOROLAC TROMETHAMINE 30 MG/ML VIAL IV. SCH ×2 (17:41→23:40)
--- NOTE | 2018-01-16 18:56 | PROGRESS NOTE ---
DATE: 01/16/2018 SUBJECTIVE: A 62-year-old female postop from right knee replacement. She is doing well. Minimal pain. No chest pain, no shortness of breath. Not feeling dizzy or lightheaded. OBJECTIVE: VITAL SIGNS: Temperature 36.4. Vital signs stable. PHYSICAL EXAMINATION: GENERAL: Physical examination reveals a pleasant, middle-aged female. She looks completely comfortable. She is sitting up in bed and talking to her . LUNGS: Clear to auscultation. HEART: Regular rate and rhythm. ABDOMEN: Soft, nontender, nondistended. EXTREMITIES: Grossly neurovascularly intact except as follows: Examination of the right leg reveals the leg to be well aligned. Dressing is clean, dry and intact. She can dorsiflex and plantarflex her foot appropriately. She is neurologically intact. She has got brisk refill. X-RAYS: X-rays of the right knee from recovery room reviewed. Shows a cemented posterior stabilized total knee arthroplasty. Components are in good position. No signs of problems. ASSESSMENT: A 62-year-old female postoperative from a right knee replacement, doing well. Pain is controlled. She is neurologically intact. PLAN: 1. DVT prophylaxis including thigh-high TEDs, SCDs, and aspirin twice a day. 2. PT/OT. Weight bear as tolerated. Right total knee protocol. 3. Pain control, doing well with current pain regimen. 4. IV antibiotics x24 hours. 5. Disposition: She is planning to be discharged to home and do outpatient therapy once medically stable and recovered.
[2018-01-16] MEDS ORDERED: TRANEXAMIC ACID INJ 1,000 MG in SODIUM CHLORIDE 0.9% 100ML 100 ML IV SCH (19:30)
[2018-01-16] MEDS: CEFAZOLIN IV 1,000 MG in SYRINGE 0 ML IV SCH (19:36)
[2018-01-16] MEDS: TRAMADOL HCL 50 MG TAB PO PRN (19:46)
[2018-01-16] MEDS: DOCUSATE SODIUM 100 MG CAP PO SCH (20:42)
[2018-01-16] MEDS: ASPIRIN 81 MG ECTAB PO SCH (20:42)
[2018-01-16] MEDS ORDERED: TRAZODONE HCL 50 MG TAB PO SCH (21:00)
[2018-01-16] MEDS ORDERED: SENNA 8.6 MG TAB PO SCH (21:00)
[2018-01-16] MEDS: ACETAMINOPHEN 500 MG TAB PO SCH (22:23)
--- NOTE | 2018-01-16 23:22 | OPERATIVE REPORT ---
DATE OF OPERATION: 01/16/2018 SURGEON: Srinivasan Oleary MD. CAGE UNLOADER: CHANG Waters. PREOPERATIVE DIAGNOSIS: Right knee degenerative joint disease. POSTOPERATIVE DIAGNOSIS: Right knee degenerative joint disease. PROCEDURE PERFORMED: Right cemented posterior stabilized total knee arthroplasty. COMPLICATIONS: None. ESTIMATED BLOOD LOSS: 50 mL. FLUID REPLACEMENT: 1800 mL crystalloid fluid replacement. TOURNIQUET TIME: 63 minutes at 300 mmHg. ANESTHESIA: Spinal with adductor canal block. DRAINS: None. SPECIMENS: Right knee sent for pathology. 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 She has been through extensive conservative treatment, which became less successful over time. Pain has really become debilitating and limiting her activities. She underwent a left knee replacement 3 months ago and has done excellent from this and elected to proceed with a right total knee arthroplasty. OPERATIVE FINDINGS: Operative findings revealed advanced extensive right knee DJD with grade 4 changes of medial femoral condyle and medial tibial plateau with eburnation of the bone. She had a varus deformity to her knee. Moderate size joint effusion. OPERATIVE IMPLANTS: Operative implants consisted of: 1. Biomet Vanguard size 62.5 right posterior stabilized femoral component. 2. Biomet size 67 tibial tray. 3. A 12 mm posterior stabilized polyethylene insert. 4. A 28 x 8 all poly patella. OPERATIVE PROCEDURE: The patient was taken to the operating room, identified and placed on the operative table in supine position. All contact areas were appropriately padded. IV antibiotics were provided by anesthesia team. A spinal anesthetic and adductor canal block had been provided in the holding area. Webster catheter was placed in sterile fashion. A right thigh tourniquet was then placed and the right lower extremity was then prepped and draped in usual sterile fashion. The right leg was elevated and exsanguinated with Esmarch and tourniquet was placed at 300 mmHg. An anterior approach of the right knee was then performed through a longitudinal incision centered over the patella. Sharp dissection was carried through the subcutaneous tissues down to the level of the extensor mechanism. Medial parapatellar arthrotomy incision was made. Some subperiosteal dissection was carried out medially. The fat pad was resected beneath the patellar tendon. Lateral patellofemoral ligament was released. Patella was everted and the knee was flexed. The osteophytes were taken off the distal femur. The ACL and PCL were then released from the distal femur and the tibia subluxated anteriorly. The external tibial alignment jig was then placed in the anterior face of the tibia and adjusted about 16 mm medially. Proximal tibial cut was made to remove about a millimeter of bone from the most deficient aspect of the medial tibial plateau. Some osteophytes were taken off medial and posteromedially. Tibia size was size 67. Attention was then drawn to the femur. Distal femur was entered with a sharp drill bit. Intramedullary canal was suctioned. A right 5 degree valgus cutting guide was placed. Distal femoral cutting block was pinned in place. Distal femoral cut was made to take an additional 3 mm of bone off the distal femur. Femur was then sized to a size 62.5. The AP cutting block was pinned parallel to the epicondylar axis, which was 3 degrees of external rotation. The anterior cut, anterior chamfer, posterior cut, posterior chamfer cuts were made. Box cutting guide was placed and adjusted slightly lateral and the box cut was made. The knee was flexed. The remnants of the medial and lateral menisci were excised. The osteophytes were taken off the posterior aspect of the femur. A trial femoral component was placed. Tibial tray was pinned in maximum external rotation and a drill and stem punch were used to create defect in proximal tibia for the tibial tray. The knee was then trialed and a 12 mm insert fit most appropriately. Attention was then drawn to the patella. The patella was cleaned of all soft tissues. Patella thickness measured 20 mm in thickness and was cut down to 13. It was sized to a size 28 patella. Lug holes were drilled for a 28 patella. Lateral osteophyte was removed. Patella button was placed. Knee was taken through range of motion and patella tracked nicely with no thumbs test. Attention was then drawn toward placement of permanent components. All trial components were removed. Bone plug was placed in the distal femur to limit blood loss. A double batch of Palacos G cement was mixed. A right size 62.5 posterior stabilized femoral component, size 67 tibial tray, 12 mm posterior stabilized polyethylene insert, a 28 x 8 all poly patella then cemented in place. Knee was brought into full extension until cement hardened. A final cement check was then performed. Pericapsular tissues were injected with a total of 100 mL of a combination of 20 mL of Exparel, 30 mL normal saline, 50 mL of 0.25% Marcaine with epinephrine. The patient did receive 1 gram of tranexamic acid. The tourniquet was then let down for a final tourniquet time of 53 minutes. Hemostasis was assured with use of electrocautery. The extensor mechanism was then closed with a combination of #1 PDS suture and #1 Vicryl suture in a [id number] fashion. The extensor mechanism was checked and found to be intact. Subcutaneous tissues were then closed with 2-0 Dexon suture in a buried interrupted fashion. Skin was closed with skin jose alberto. Leg was then cleaned and dried and a sterile dressing of Xeroform, 4 x 4, sterile cast padding, and Nahum bandage were applied. The patient then transferred to the recovery room in stable condition. The patient tolerated the procedure well with no complications. All needle and sponge counts were correct at the end of the operation. I attest to the content of the Intraoperative Record and any orders documented therein. Any exception s are noted below.
[2018-01-17] MEDS: D5W AND 1/2NSS + 20MEQ KCL 1,000 ML IV SCH ×2 (01:56→11:00)
[2018-01-17] MEDS: TRAMADOL HCL 50 MG TAB PO PRN ×3 (01:57→11:48)
[2018-01-17 03:31] VITALS: BP 127/70; PULSE 61; TEMP 36.7; O2SAT 98
[2018-01-17] MEDS: CEFAZOLIN IV 1,000 MG in SYRINGE 0 ML IV SCH (03:32)
[2018-01-17] MEDS: ACETAMINOPHEN 500 MG TAB PO SCH ×2 (05:30→13:32)
[2018-01-17] MEDS: KETOROLAC TROMETHAMINE 30 MG/ML VIAL IV. SCH ×2 (05:30→11:41)
[2018-01-17 06:11] LABS: HEMATOCRIT 38.9 % (37-47); HEMOGLOBIN 12.6 g/dL (12.0-16.0); MEAN CELL VOLUME 92.8 fL (80-100); MEAN CORPUSCULAR HEMOGLOBIN 30.1 pg (25-34); MEAN CORPUSCULAR HGB CONC 32.4 g/dl (32-36); MEAN PLATELET VOLUME 10.2 fL (7.4-10.4); PLATELET COUNT 214 K/uL (130-400); RED CELL DISTRIBUTION WIDTH CV 12.3 % (11.5-14.5); RED CELL DISTRIBUTION WIDTH SD 41.4 fL (36.4-46.3); WHITE BLOOD COUNT 9.14 K/uL (4.8-10.8)
[2018-01-17 06:42] LABS: CALCIUM 7.9 mg/dl (8.5-10.1); CREATININE 0.66 mg/dl (0.60-1.20); POTASSIUM 4.4 mmol/L (3.5-5.1)
[2018-01-17 07:31] VITALS: BP 128/76; PULSE 63; TEMP 36.8; O2SAT 100
[2018-01-17] MEDS: ASPIRIN 81 MG ECTAB PO SCH (08:27)
[2018-01-17] MEDS: DOCUSATE SODIUM 100 MG CAP PO SCH (08:27)
[2018-01-17] MEDS: FERROUS GLUCONATE 324 MG TAB PO SCH ×2 (08:27→13:31)
[2018-01-17] MEDS ORDERED: PANTOprazole SOD 40 MG TAB PO SCH (09:00)
[2018-01-17] MEDS ORDERED: MULTIVITAMIN TAB PO SCH ×2 (09:00)
[2018-01-17] MEDS ORDERED: VENLAFAXINE HCL XR 150 MG CAPXR PO SCH (09:00)
--- NOTE | 2018-01-17 13:46 | Discharge Instructions ---
Discharge Instructions Date of Service Jan 17, 2018. Admission Reason for Admission: Right Knee Degenerative Joint Disease Discharge Discharge Diagnosis / Problem: Right Knee Replacement Discharge Goals Goal(s): Decrease discomfort, Improve function, Increase independence, Improve disease control, Therapeutic intervention Activity Recommendations Activity Limitations: per Instructions/Follow-up section Weightbearing Status: Right weightbearing . Instructions / Follow-Up Instructions / Follow-Up ACTIVITY RECOMMENDATIONS: Physical Therapy: * You will go to physical therapy three times each week for four to six weeks after your surgery in order to regain your knee range of motion and to retrain your knee to work properly. * It is just as important to make sure you are getting your knee perfectly straight as it is to regain your knee bend. * Taking a pain pill an hour before therapy can help you have a more productive and comfortable therapy session. Home Exercise: * You were shown a series of exercises (heel props, heel slides, etc.) in the hospital. Do these exercises three to four times each day including the exercises you were shown in physical therapy. Walking: * Get up and walk several times each day. For the first four weeks, try not to stand or walk for more than one hour at a time. If you do stand or walk for more than one hour, you will not hurt anything, but your knee and leg will likely swell. * As you feel comfortable, you may change from the walker or crutches to a cane and then to independent walking. MEDICATIONS: New Medicine: * You will likely be taking one or more of these medications: 1. Tramadol - A quick and shorter-acting pain medication. Take one to two tablets every four to six hours to lessen your pain. 2. Toradol - Take four times a day for 5 days to decrease pain and swelling. 3. Aspirin - Thins your blood to lessen the chance of forming a blood clot. * The most common side effects of pain medicine and iron are nausea and constipation. If nausea or constipation is too much of a problem or if you have any questions about your new medicines or doses, call [facility] at . We will try to help you manage these issues. VERY IMPORTANT TO READ AND REVIEW" Pain: * The immediate post-operative period after knee replacement surgery is often quite painful. * You are given a prescription for pain medicine. You should take it, as directed, when you need it, especially before physical therapy and before going to bed. Pain that interferes with sleep is very common and can last several months. * You will likely need pain medicine for the first four to six weeks. It will not stop all of the pain. The pain will lessen and as you feel better, you may change to milder pain medicine such as Tylenol. * The most common side effects of pain medicine are nausea and constipation, so don't take more than you need. SPECIAL CARE INSTRUCTIONS: TEDs/Elastic Stockings: * The white elastic stockings help limit swelling and prevent blood clots from forming in your legs. The more you wear them, the more they work. * Wear them for six weeks after knee replacement surgery and four weeks after partial knee replacement. Prevention of Infection: * Take antibiotics one hour before any dental cleaning, dental work, urological procedure, gastrointestinal procedure or any invasive surgery in order to prevent your new joint from getting infected. * You may get the antibiotics from the doctor performing the procedure or you may call our office at before and we will call in a prescription to the pharmacy of your choice. Things to Watch For: * Drainage from the incision site that occurs more than one week after your surgery. * Severely increased knee/leg pain or swelling. * Increased redness at the incision site. * Fever above 102 degrees Fahrenheit. * Unusual chest pain or shortness of breath. * Unusual pain or burning with urination. Call [facility] at with any of the above problems or if you have any questions about your medicines or recovery. FOLLOW UP VISIT: Make an appointment to see your doctor for approximately two weeks after surgery for a progress check and staple removal by calling the office at . Current Hospital Diet Patient's current hospital diet: Regular Diet Discharge Diet Recommended Diet: Regular Diet Procedures Procedures Performed: Right Total Knee Arthroplasty Pending Studies Studies pending at discharge: no Medical Emergencies . Who to Call and When: Medical Emergencies: If at any time you feel your situation is an emergency, please call [phone] immediately. . Non-Emergent Contact Non-Emergency issues call your: Surgeon . "Provider Documentation" section prepared by Srinivasan Oleary. .
[2018-01-17 13:51] VITALS: BP 128/76; PULSE 63; TEMP 36.8; O2SAT 100
--- NOTE | 2018-01-17 13:59 | PROGRESS NOTE ---
DATE: 01/17/2018 SUBJECTIVE: A 62-year-old white female postop day 1 from right knee replacement. She is doing well. Pain is controlled. Really wants to go home. No chest pain or shortness of breath. Not feeling dizzy or lightheaded. Doing okay with tramadol pain medicine. OBJECTIVE: VITAL SIGNS: Temperature 36.8. Vital signs stable. GENERAL: Physical examination reveals a pleasant, middle-aged female. She is sitting up in bed and looks comfortable. EXTREMITIES: Examination of the right leg reveals the dressing to be clean, dry and intact. She can dorsiflex and plantarflex her foot appropriately. She can do a straight leg raise. She is neurologically intact. LABORATORY DATA: Hemoglobin 12.6. Hematocrit 38.9. Electrolytes are stable. ASSESSMENT: A 62-year-old white female postop day 1 from right knee replacement, doing well. Pain is controlled. PLAN: 1. DVT prophylaxis including thigh-high TEDs, SCDs, and aspirin twice a day. 2. PT/OT. Weight bear as tolerated. Right total knee protocol. 3. Pain control, doing well with current pain regimen. 4. Disposition: Plan to discharge to home and do outpatient therapy.
--- NOTE | 2018-01-23 16:04 | DISCHARGE SUMMARY ---
ADMITTING PHYSICIAN AND SURGEON: Dr. Oleary. ADMITTING DIAGNOSIS: Right knee degenerative joint disease. SURGERY PERFORMED: Right total knee arthroplasty. SECONDARY DIAGNOSIS: Arthritis. CONSULTS: None obtained. HISTORY AND PHYSICAL EXAMINATION: Well documented in the patient's chart. HOSPITAL COURSE: The patient was admitted on 01/16/2018, underwent total knee arthroplasty, tolerated the procedure well without complications. She was transferred to the PACU postoperatively and later to the orthopedic floor for further care. She was given Ancef for antibiotic prophylaxis, FATIMAH stockings, SCDs and aspirin for DVT prophylaxis. Hemoglobin, hematocrit and vital signs were monitored during hospital stay and remained stable. She did not require any blood transfusions. There were no complications. By postoperative day 1, she was tolerating a regular diet, pain was controlled with oral pain medicine. She was participating in physical therapy. On postop day 1, she was discharged home, given printed discharge instructions including new prescription for extra strength Tylenol, aspirin and tramadol. Continue her home medication with the exception of ibuprofen which she was told to stop. Continue physical therapy. She is weightbearing as tolerated, FATIMAH stockings. Follow up approximately 2 weeks postoperatively or sooner if there are any problems or concerns.
== END 2018-01-17 14:25 | disposition home or self-care (01) | DRG 470 ==
LOC: C.ACU 08:25 → C.3E 13:28 → ENRESERV 14:20
PROVIDERS: ADMIT Orthopaedic Surgery Sports Medicine; ATTEND Orthopaedic Surgery Sports Medicine
PROC: 0SRC0J9 Replacement of Right Knee Joint with Synthetic Substitute, Cemented, Open Approach (ICD-10-PCS; principal; 2018-01-16 11:00)
DX: M17.11 Unilateral primary osteoarthritis, right knee (principal); Z79.899 Other long term (current) drug therapy